=== PATIENT | female | born 1950 | race Caucasian/White ===

== ENCOUNTER 2019-04-03 20:55 | Inpatient (IN) | payer MEDICARE, MEDICAID ==
--- NOTE | 2019-04-03 22:07 | EDM.PDOC ---
ED HPI GENERAL MEDICAL PROBLEM - General Chief Complaint: Abdominal Pain Stated Complaint: ABD PAIN Time Seen by Provider: 04/03/19 21:40 Source of Information: Reports: Patient, Family History Limitations: Reports: No Limitations - History of Present Illness INITIAL COMMENTS - FREE TEXT/NARRATIVE: 68-year-old female with known gallstones developed right upper quadrant pain radiating to her back with nausea about 2 hours prior to presentation. The pain was improving by the time she arrived to the emergency room. No fevers or chills , no diarrhea. Denies shortness of breath or chest pain. The pain is still present, limited to the upper abdomen. Onset: Sudden Duration: Hour(s): (2 hours) Associated Symptoms: Reports: Malaise, Nausea/Vomiting. Denies: Confusion, Fever/Chills, Loss of Appetite, Shortness of Breath abd pain Pain Score (Numeric/FACES): 10 - Related Data Allergies Allergy/AdvReac Type Severity Reaction Status Date / Time Penicillins Allergy Severe Difficulty Verified 04/03/19 21:20 Breathing quinine [Quinine] Allergy Intermediate Hives Verified 04/03/19 21:20 Iodinated Contrast- Oral and Allergy Burning Verified 04/03/19 21:20 IV Dye [Iodinated Contrast Media - IV Dye] Home Meds: Home Meds Lisinopril 10 mg PO BEDTIME 08/14/13 [History] Simvastatin 20 mg PO BEDTIME 08/14/13 [History] Ranitidine [Zantac] 150 mg PO BID 05/19/16 [History] Nitroglycerin [Nitrostat] 0.4 mg SL ASDIRECTED PRN 05/26/16 [History] Acetaminophen [Tylenol] 325 mg PO .Q3-4H PRN 08/04/16 [History] Metoprolol Succinate 50 mg PO DAILY 08/04/16 [History] Omeprazole 20 mg PO DAILY 08/04/16 [History] Past Medical History HEENT History: Reports: Impaired Vision Cardiovascular History: Reports: CAD, High Cholesterol, Hypertension, [place] Gastrointestinal History: Reports: Cholelithiasis, GERD Genitourinary History: Reports: Other (See Below) Other Genitourinary History: right kidney stent 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: Musculoskeletal History: Reports: Arthritis, Osteoarthritis Endocrine/Metabolic History: Reports: Obesity/BMI 30+ - Infectious Disease History Infectious Disease History: Reports: Chicken Pox, Measles, Mumps, Rubella - Past Surgical History GI Surgical History: Reports: Appendectomy, Colonoscopy, EGD Female Surgical History: Reports: Breast Biopsy Musculoskeletal Surgical History: Reports: None Social & Family History - Tobacco Use Smoking Status *Q: Never Smoker - Caffeine Use Caffeine Use: Reports: Coffee Caffeine Use Comment: instant decaf - Recreational Drug Use Recreational Drug Use: No ED ROS GENERAL - Review of Systems Review Of Systems: See Below Constitutional: Reports: Malaise. Denies: Fever, Chills HEENT: Reports: No Symptoms Respiratory: Denies: Shortness of Breath Cardiovascular: Denies: Chest Pain GI/Abdominal: Reports: Abdominal Pain, Nausea, Vomiting. Denies: Constipation, Diarrhea : Reports: No Symptoms Skin: Reports: No Symptoms Neurological: Denies: Headache ED EXAM, GI/ABD - Physical Exam Exam: See Below Exam Limited By: No Limitations General Appearance: Alert, No Apparent Distress (Mildly uncomfortable but no longer in any distress) Eyes: Bilateral: Normal Appearance (No jaundice) Head: Atraumatic Respiratory/Chest: No Respiratory Distress, Lungs Clear Cardiovascular: Regular Rate, Rhythm GI/Abdominal Exam: Normal Bowel Sounds, Soft, Tender (She is tender with mild guarding to palpation in the right upper quadrant, no rebound tenderness) Neurological: Alert, Oriented Psychiatric: Normal Affect, Normal Mood Skin Exam: Warm, Dry Course - Vital Signs Last Recorded V/S: Last Vital Signs Temp 97.5 F 04/03/19 21:26 Pulse 69 04/04/19 00:06 Resp 14 04/04/19 00:06 BP 126/60 04/04/19 01:06 Pulse Ox 95 04/04/19 00:06 - Orders/Labs/Meds Orders: Medication Orders Sodium Chloride (Normal Saline) 1,000 mls @ 150 mls/hr IV ASDIRECTED [facility] Last Admin: 04/04/19 01:06 Dose: 150 mls/hr Metronidazole 500 mg/ Premix 100 mls @ 100 mls/hr IV Q8H [facility] Last Admin: 04/04/19 01:07 Dose: 100 mls/hr Ciprofloxacin/Dextrose 400 mg/ (Premix) 200 mls @ 200 mls/hr IV Q12H [facility] Lisinopril (Prinivil) 10 mg PO DAILY [facility] Last Admin: 04/04/19 01:06 Dose: 10 mg Morphine Sulfate (Morphine) 2 mg IVPUSH Q4H PRN PRN Reason: Pain (severe 7-10) Ondansetron HCl (Zofran) 4 mg IV Q4H PRN PRN Reason: Nausea/Vomiting Senna/Docusate Sodium (Senna Plus) 1 tab PO BID PRN PRN Reason: Constipation Simvastatin (Zocor) 20 mg PO BEDTIME BELL Last Admin: 04/04/19 01:14 Dose: 20 mg Labs: Laboratory Tests 04/03/19 04/03/19 Range/Units 22:02 22:02 WBC 17.6 H (4.5-11.0) K/uL RBC 4.20 (3.30-5.50) M/uL Hgb 12.5 (12.0-15.0) g/dL Hct 39.7 (36.0-48.0) % MCV 95 (80-98) fL MCH 30 (27-31) pg MCHC 32 (32-36) % Plt Count 364 (150-400) K/uL Neut % (Auto) 84 H (36-66) % Lymph % (Auto) 9 L (24-44) % Cache % (Auto) 6 (2-6) % Eos % (Auto) 1 L (2-4) % Baso % (Auto) 0 (0-1) % Sodium 142 (140-148) mmol/L Potassium 3.8 (3.6-5.2) mmol/L Chloride 106 (100-108) mmol/L Carbon Dioxide 26 (21-32) mmol/L Anion Gap 10.2 (5.0-14.0) mmol/L BUN 27 H (7-18) mg/dL Creatinine 0.8 (0.6-1.0) mg/dL Est Cr Clr Drug Dosing 54.13 mL/min Estimated GFR (MDRD) > 60 (>60) Glucose 164 H (74-106) mg/dL Calcium 9.2 (8.5-10.1) mg/dL Total Bilirubin 0.6 (0.2-1.0) mg/dL AST 113 H D (15-37) U/L ALT 59 D (12-78) U/L Alkaline Phosphatase 180 H (46-116) U/L Total Protein 7.1 (6.4-8.2) g/dL Albumin 3.3 L (3.4-5.0) g/dL Globulin 3.8 H (2.3-3.5) g/dL Albumin/Globulin Ratio 0.9 L (1.2-2.2) Amylase 38 (25-115) U/L Lipase 117 (73-393) U/L Meds: Medications Generic Name Dose Route Start Last Admin Trade Name Nakul PRN Reason Stop Dose Admin Sodium Chloride 1,000 mls @ 150 mls/hr 04/04/19 00:15 04/04/19 01:06 Normal Saline IV 150 mls/hr ASDIRECTED BELL Administration Metronidazole 500 mg/ Premix 100 mls @ 100 mls/hr 04/04/19 00:00 04/04/19 01: 07 IV 100 mls/hr Q8H BELL Administration Ciprofloxacin/Dextrose 400 mg/ 200 mls @ 200 mls/hr 04/04/19 00:00 Premix IV Q12H BELL Lisinopril 10 mg 04/04/19 00:15 04/04/19 01:06 Prinivil PO 10 mg DAILY BELL Administration Morphine Sulfate 2 mg 04/04/19 00:00 Morphine IVPUSH Q4H PRN Pain (severe 7-10) Ondansetron HCl 4 mg 04/04/19 00:00 Zofran IV Q4H PRN Nausea/Vomiting Senna/Docusate Sodium 1 tab 04/04/19 00:00 Senna Plus PO BID PRN Constipation Simvastatin 20 mg 04/04/19 00:10 04/04/19 01:14 Zocor PO 20 mg BEDTIME BELL Administration Discontinued Medications Generic Name Dose Route Start Last Admin Trade Name Nakul PRN Reason Stop Dose Admin Ciprofloxacin/Dextrose 400 mg/ 200 mls @ 200 mls/hr 04/04/19 00:15 Premix IV Q12H BELL Ciprofloxacin/Dextrose 400 mg/ 200 mls @ 200 mls/hr 04/04/19 00:30 Premix IV Q12H BELL - Re-Assessments/Exams Free Text/Narrative Re-Assessment/Exam: 04/03/19 22:06 CBC, CMP amylase and lipase were obtained. 04/03/19 22:50 White count was 17,600, alkaline phosphatase and AST were also elevated. Despite the patient's improving symptoms, with the abnormal labs a gallbladder ultrasound was obtained for tonight which is pending. Amylase and lipase were normal. 04/03/19 23:57 Gallbladder ultrasound confirmed a large stone in the neck of the gallbladder with borderline wall, no pericholecystic fluid and she is having less pain. [facility], symptom control, and surgical consult tomorrow. Departure - Departure Time of Disposition: 00:48 Disposition: Admitted As Inpatient 64 Clinical Impression: Cholecystitis Abdominal pain Qualifiers: Abdominal location: right upper quadrant Qualified Code(s): R10.11 - Right upper quadrant pain - Discharge Information
[2019-04-04] MEDS ORDERED: Morphine 2 MG/ML Syringe IVPUSH PRN
[2019-04-04] MEDS ORDERED: Ondansetron 4 MG/2 ML SDV IV PRN
--- NOTE | 2019-04-04 | PCM.HP ---
H&P History of Present Illness - General Date of Service: 04/04/19 Source of Information: Patient - History of Present Illness Initial Comments - Free Text/Narative: 68-year-old female with past medical history of hyperlipidemia, hypertension, GERD, previous history of kidney stones came to the ED with a complaining of nausea, vomiting, right upper quadrant abdominal pain. Patient states that she has nausea and 4 episodes of vomiting today. Denies any blood in the vomiting. Patient reports that she has recurrent abdominal pains in the right upper quadrant which resolves on its own. Patient reports that pain is 5 and 6/10 intensity, throbbing type pain, intermittent. Patient was previously diagnosed with kidney stones at that time imaging studies showed multiple gallstones and gallbladder. In the ED patient had ultrasound which showed multiple gallstones obstructing the gallbladder neck. Patient CODE STATUS is full code. Other review of systems are not significant. abd pain Pain Score (Numeric/FACES): 10 - Related Data Allergies/Adverse Reactions: Allergies Allergy/AdvReac Type Severity Reaction Status Date / Time Penicillins Allergy Severe Difficulty Verified 04/03/19 21:20 Breathing quinine [Quinine] Allergy Intermediate Hives Verified 04/03/19 21:20 Iodinated Contrast- Oral and Allergy Burning Verified 04/03/19 21:20 IV Dye [Iodinated Contrast Media - IV Dye] Home Medications: Home Meds Lisinopril 10 mg PO BEDTIME 08/14/13 [History] Simvastatin 20 mg PO BEDTIME 08/14/13 [History] Ranitidine [Zantac] 150 mg PO BID 05/19/16 [History] Nitroglycerin [Nitrostat] 0.4 mg SL ASDIRECTED PRN 05/26/16 [History] Acetaminophen [Tylenol] 325 mg PO .Q3-4H PRN 08/04/16 [History] Metoprolol Succinate 50 mg PO DAILY 08/04/16 [History] Omeprazole 20 mg PO DAILY 08/04/16 [History] Past Medical History HEENT History: Reports: Impaired Vision Cardiovascular History: Reports: CAD, High Cholesterol, Hypertension, [place] Gastrointestinal History: Reports: Cholelithiasis, GERD Genitourinary History: Reports: Other (See Below) Other Genitourinary History: right kidney stent 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: Musculoskeletal History: Reports: Arthritis, Osteoarthritis Endocrine/Metabolic History: Reports: Obesity/BMI 30+ - Infectious Disease History Infectious Disease History: Reports: Chicken Pox, Measles, Mumps, Rubella - Past Surgical History GI Surgical History: Reports: Appendectomy, Colonoscopy, EGD Female Surgical History: Reports: Breast Biopsy Musculoskeletal Surgical History: Reports: None Social & Family History - Family History Family Medical History: Noncontributory - Tobacco Use Smoking Status *Q: Never Smoker - Caffeine Use Caffeine Use: Reports: Coffee Caffeine Use Comment: instant decaf - Recreational Drug Use Recreational Drug Use: No H&P Review of Systems - Review of Systems: Review Of Systems: See Below General: Denies: Fever, Chills, Malaise, Weakness Pulmonary: Denies: Shortness of Breath, Wheezing, Pleuritic Chest Pain, Cough Cardiovascular: Denies: Chest Pain, Palpitations, Dyspnea on Exertion, Orthopnea , PND Gastrointestinal: Reports: Abdominal Pain, Nausea, Vomiting. Denies: Black Stool, Bloody Stool, Constipation Genitourinary: Denies: Dysuria, Frequency Musculoskeletal: Denies: Neck Pain, Shoulder Pain, Arm Pain Skin: Denies: Cyanosis, Jaundice Psychiatric: Denies: Confusion, Depression, Mood Lability Neurological: Denies: Confusion, Dizziness Hematologic/Lymphatic: Denies: Anemia, Easy Bleeding Exam - Exam Exam: See Below - Vital Signs Vital Signs: Last Vital Signs Temp 36.4 C 04/03/19 21:26 Pulse 72 04/03/19 21:26 Resp 18 04/03/19 21:26 BP 161/57 H 04/03/19 21:26 Pulse Ox 94 L 04/03/19 21:26 Weight: 84.5 kg - Exam General: Alert, Oriented Neck: Supple, Trachea Midline Lungs: Clear to Auscultation, Normal Respiratory Effort Cardiovascular: Regular Rate, Regular Rhythm, Normal S1, Normal S2 GI/Abdominal Exam: Normal Bowel Sounds, Soft, No Organomegaly, No Distention, No Mass, Pelvis Stable, Tender. No: Non-Tender Extremities: Normal Inspection, Normal Range of Motion, Non-Tender, No Pedal Edema Skin: Warm, Dry, Intact Neuro Extensive - Mental Status: Alert, Oriented x3 - Patient Data Lab Results Last 24 hrs: Laboratory Results - last 24 hr 04/03/19 04/03/19 Range/Units 22:02 22:02 WBC 17.6 H (4.5-11.0) K/uL RBC 4.20 (3.30-5.50) M/uL Hgb 12.5 (12.0-15.0) g/dL Hct 39.7 (36.0-48.0) % MCV 95 (80-98) fL MCH 30 (27-31) pg MCHC 32 (32-36) % Plt Count 364 (150-400) K/uL Neut % (Auto) 84 H (36-66) % Lymph % (Auto) 9 L (24-44) % [place] % (Auto) 6 (2-6) % Eos % (Auto) 1 L (2-4) % Baso % (Auto) 0 (0-1) % Sodium 142 (140-148) mmol/L Potassium 3.8 (3.6-5.2) mmol/L Chloride 106 (100-108) mmol/L Carbon Dioxide 26 (21-32) mmol/L Anion Gap 10.2 (5.0-14.0) mmol/L BUN 27 H (7-18) mg/dL Creatinine 0.8 (0.6-1.0) mg/dL Est Cr Clr Drug Dosing 54.13 mL/min Estimated GFR (MDRD) > 60 (>60) Glucose 164 H (74-106) mg/dL Calcium 9.2 (8.5-10.1) mg/dL Total Bilirubin 0.6 (0.2-1.0) mg/dL AST 113 H D (15-37) U/L ALT 59 D (12-78) U/L Alkaline Phosphatase 180 H (46-116) U/L Total Protein 7.1 (6.4-8.2) g/dL Albumin 3.3 L (3.4-5.0) g/dL Globulin 3.8 H (2.3-3.5) g/dL Albumin/Globulin Ratio 0.9 L (1.2-2.2) Amylase 38 (25-115) U/L Lipase 117 (73-393) U/L Result Diagrams: 04/05/19 05:07 04/04/19 05:49 - Problem List (1) Abdominal pain SNOMED Code(s): 10940522 ICD Code: R10.9 - UNSPECIFIED ABDOMINAL PAIN Status: Acute Current Visit : Yes Qualifiers: Abdominal location: right upper quadrant Qualified Code(s): R10.11 - Right upper quadrant pain (2) Cholecystitis SNOMED Code(s): 13238683 ICD Code: K81.9 - CHOLECYSTITIS, UNSPECIFIED Status: Acute Current Visit : Yes (3) GERD (gastroesophageal reflux disease) SNOMED Code(s): 064899664 ICD Code: K21.9 - GASTRO-ESOPHAGEAL REFLUX DISEASE WITHOUT ESOPHAGITIS Status: Chronic Current Visit: No (4) HTN (hypertension) SNOMED Code(s): 87907754 ICD Code: I10 - ESSENTIAL (PRIMARY) HYPERTENSION Status: Chronic Current Visit: No Problem List Initiated/Reviewed/Updated: Yes Orders Last 24hrs: Active Orders 24 hr Category Date Time Status Abdomen Ltd [US] Stat Exams 04/03/19 22:27 Taken Assessment/Plan Comment:: 68-year-old female with past medical history of hyperlipidemia, hypertension, GERD, biliary colic came to the ED with a complaining of abdominal pain admitted into the hospital with acute cholecystitis Patient ultrasound showed concerns of acute cholecystitis We will place her on ciprofloxacin, metronidazole antibiotic as patient is allergic to penicillin Maintenance IV fluids 150 mL/h Morphine for pain control as needed CBC CMP tomorrow N.p.o. for now Consulted surgery for possible cholecystectomy CODE STATUS full code IV fluids normal saline 150 mL/h Diet n.p.o. for now Adamson catheter not indicated DVT prophylaxis Pass boots
[2019-04-04] MEDS ORDERED: Simvastatin 20 MG Tab PO SCH (00:10)
[2019-04-04] MEDS ORDERED: Ciprofloxacin in D5W 400 MG in Premix Bag 1 BAG IV SCH ×8 (00:15→14:00)
[2019-04-04] MEDS ORDERED: Sodium Chloride 0.9% 1,000 ML IV SCH (00:15)
--- NOTE | 2019-04-04 00:20 | CRLUS ---
INDICATION: Right upper quadrant pain. Nausea and vomiting TECHNIQUE: Ultrasound abdomen limited. Sonographic images of the right upper quadrant were obtained using braswell-scale and color Doppler images. COMPARISON: None available FINDINGS: Liver: Slightly increased hepatic echogenicity. No discrete hepatic lesion seen. Gallbladder: A prominent shadowing nonmobile gallstone near the gallbladder neck. Gallbladder wall thickening, measuring up to 6 mm, however the gallbladder is not significantly distended. A reported negative sonographic Helm`s sign. Common bile duct: 4 mm. Pancreas: Unremarkable. Right kidney: 10.3 x 4.5 x 4.3 cm. Unremarkable echotexture and cortex. No masses, stones, or hydronephrosis. Vasculature: The visualized aorta is within normal limits in caliber. IMPRESSION: Cholelithiasis with gallbladder wall thickening, however no significant gallbladder distention. In the correct clinical setting, the findings could represent acute or chronic cholecystitis, although the gallbladder wall thickening may also be related to hepatic disease. Correlate clinically. If indicated, correlate with HIDA scan. Dictated by Hi Brown MD @ 04/04/2019 12:18:25 AM Dictated by: Hi Brown MD @ 04/04/2019 00:18:53 (Electronically Signed)
[2019-04-04] MEDS: Lisinopril 10 MG Tab PO SCH ×2 (01:06→08:06)
[2019-04-04] MEDS ORDERED: Glycopyrrolate 0.2 MG/ML 5 ML MDV ONE (08:27)
[2019-04-04] MEDS ORDERED: Rocuronium 50 MG/5 ML Vial ONE (08:27)
[2019-04-04] MEDS ORDERED: Neostigmine Methylsulfate 1 MG/ML 5 ML Syringe ONE (08:27)
[2019-04-04] MEDS ORDERED: Succinylcholine 200 MG/10 ML MDV ONE (08:27)
[2019-04-04] MEDS ORDERED: Ondansetron 4 MG/2 ML SDV ONE (08:27)
[2019-04-04] MEDS ORDERED: Dexamethasone 4 MG/ML SDV ONE (08:27)
[2019-04-04] MEDS ORDERED: Propofol 200 MG/20 ML SDV ONE (08:27)
[2019-04-04] MEDS ORDERED: fentaNYL 250 MCG/5 ML SDV ONE (08:30)
[2019-04-04] MEDS ORDERED: metroNIDAZOLE/Normal Saline 500 MG in Premix Bag 1 BAG IV SCH ×3 (09:00)
[2019-04-04] MEDS ORDERED: Metoprolol Succinate 50 MG Tab.ER PO ONE (09:00)
[2019-04-04] MEDS ORDERED: Meropenem 500 MG in Sodium Chloride 0.9% 50 ML IV ONE (10:15)
[2019-04-04] MEDS ORDERED: fentaNYL 100 MCG/2 ML SDV ONE (12:26)
[2019-04-04] MEDS ORDERED: Labetalol 20 MG/4 ML Syringe ONE (12:34)
[2019-04-04] MEDS ORDERED: Sugammadex Sodium 200 MG/2 ML VIAL ONE (13:02)
[2019-04-04] MEDS ORDERED: Midazolam 1 MG/ML 2 ML SDV ONE (13:10)
[2019-04-04] MEDS ORDERED: hydrOXYzine HCl 100 MG/2 ML SDV IM ONE (13:50)
[2019-04-04] MEDS ORDERED: HYDROmorphone 1 MG/ML Syringe IV PRN (14:36)
[2019-04-04] MEDS ORDERED: HYDROmorphone 0.5 MG/0.5 ML Syringe IVPUSH PRN (14:37)
[2019-04-04] MEDS ORDERED: Nitroglycerin 0.4 MG Tab.SL SL PRN (14:38)
[2019-04-04] MEDS ORDERED: Dextrose 5%-Lactated Ringers 1,000 ML IV SCH (14:45)
[2019-04-04] MEDS: Acetaminophen/HYDROcodone 325-5 MG Tab PO PRN (14:49)
[2019-04-04] MEDS: Acetaminophen 325 MG Tab PO SCH ×2 (15:54→22:12)
[2019-04-04] MEDS: Meropenem 500 MG in Sodium Chloride 0.9% 50 ML IV SCH ×2 (15:54→22:13)
[2019-04-04] MEDS ORDERED: Pantoprazole 40 MG Vial IV SCH (16:30)
[2019-04-05] MEDS: Acetaminophen 325 MG Tab PO SCH ×2 (04:13→09:34)
[2019-04-05] MEDS: Meropenem 500 MG in Sodium Chloride 0.9% 50 ML IV SCH (04:15)
[2019-04-05] MEDS: Acetaminophen/HYDROcodone 325-5 MG Tab PO PRN (04:20)
[2019-04-05 08:34] VITALS: BP 111/47
[2019-04-05] MEDS ORDERED: Metoprolol Succinate 50 MG Tab.ER PO SCH (09:00)
[2019-04-05] MEDS ORDERED: Magnesium Hydroxide 400 MG/5 ML Susp 30 ML Cup PO SCH (09:00)
--- NOTE | 2019-04-05 18:52 | DISCH ---
ADMISSION DIAGNOSES: 1. Abdominal pain. 2. Hypertension. 3. Gastroesophageal reflux disease. DISCHARGE DIAGNOSIS: Diagnostic laparoscopy with cholecystectomy and excision of enlarged portal hepatic lymph node for subacute/chronic cholecystitis and cholelithiasis and enlarged portal hepatic lymph node. Date of surgery 04/04/2019. Surgeon, Dr. Diogenes Landrum. HISTORY: Shruthi De Los Santos is a 68-year-old female who went to the emergency room with severe abdominal pain. After preoperative evaluation and discussion of possible risks and possible complications, she wished to proceed with surgical procedure. HOSPITAL COURSE: Shruthi had her surgery on 04/04/2019. She had no operative complications. She was able to be discharged to home on 04/05/2019. PHYSICAL EXAMINATION: GENERAL: Shruthi De Los Santos is a 68-year-old female. VITAL SIGNS: Height is 5 feet 2.9 inches. Weight is 186 pounds. TPR is 98, 180, 16. Blood pressure 111/47. HEENT: Negative. NECK: Supple. HEART: Regular rate and rhythm. LUNGS: Clear. ABDOMEN: Dressings dry and intact. Abdominal binder is on. EXTREMITIES: Without peripheral edema. VIDAL drain put out 40 mL of a light pink drainage. DISPOSITION: Discharge to home. CONDITION: Stable and improving. FOLLOWUP: Followup appointment with Sindy Nieto PA-C, on 04/13/2019 at 10 a.m. HOME MEDICATION: [place] 5/325 mg one tablet every 6 hours p.r.n. pain, #28. She is to resume her home medication. DIET: Usual diet as tolerated, drink 8 to 10 glasses of water a day. ACTIVITY: As tolerated. No lifting greater than 10 pounds for 2 weeks[address] Driving, do not drive for 1 week or while on pain medication. Shower/bathing, may shower. Keep operative site clean and dry. Wear abdominal binder for 2 weeks and then as tolerated. Notify provider if any fever, increased pain, nausea, or vomiting. Use incentive spirometer 10 times every hour while awake.
[2019-04-05] MEDS ORDERED: Lisinopril 10 MG Tab PO SCH (21:00)
--- NOTE | 2019-04-10 07:46 | OR ---
CORRECTED REPORT DATE OF PROCEDURE: 04/04/2019 SURGEON: Diogenes Landrum MD PREOPERATIVE DIAGNOSIS: Subacute and chronic cholecystitis and cholelithiasis. POSTOPERATIVE DIAGNOSES: 1. Subacute and chronic cholecystitis and cholelithiasis. 2. Enlarged denny hepatis lymph node. OPERATIVE PROCEDURE: 1. Diagnostic laparoscopy with: a. Cholecystectomy (74426). b. Excision of enlarged denny hepatis lymph node ([id number]). ANESTHESIA: General. ASSISTANTS: 1. Sindy Nieto PA-C. 2. KELLY Valentino1. INDICATION FOR PROCEDURE: The patient was admitted overnight with a recurrent episode of biliary colic, and workup showed a thickened gallbladder containing stones. At this point, she wishes to proceed with surgical treatment. Antibiotics had been administered overnight, and she is to undergo a laparoscopic or, if necessary, open cholecystectomy. Potential risks of the procedure including bleeding, infection, injury to underlying viscera, and problems with stones migrating into the common bile duct requiring additional procedures for correction were all reviewed, and the patient wishes to proceed. DETAILS OF PROCEDURE: The patient was taken to the operating room and placed in a supine position. After general endotracheal anesthesia was induced, the abdomen was prepped and draped. In the epigastrium, a transverse incision was made and the peritoneal cavity entered under direct vision with an Optiview trocar and inflated to 15 mmHg pressure of CO2. Laparoscope was then reinserted. No underlying trocar insertion site injuries were seen. Following this, a 12 mm subumbilical trocar was placed, along with a single 5 mm right abdominal trocar. Bilateral subcostal transversus abdominis plane blocks were then placed and the upper abdomen examined. The patient was noted to have a thick walled, acutely or subacutely inflamed gallbladder with a visible stone lodged in the gallbladder neck. In the denny hepatis, there was one particularly enlarged lymph node, which stood out quite prominently, this measuring about 1 cm, and this was excised for pathologic staging in the event that there might be carcinoma within the gallbladder. The gallbladder was then retracted anteriorly and laterally. Dissection began with Harmonic scalpel on the gallbladder neck and continued around the gallbladder neck and cystic duct junction. The cystic artery adjacent to this was then isolated as well. The cystic duct was fairly thick and friable. This was, therefore, divided with a [place] purple load. The artery was then clipped 3 times proximally and divided distally with Harmonic scalpel. The gallbladder was then dissected off the gallbladder bed. The gallbladder was then placed into a specimen bag, which was retrieved through the epigastric trocar site, which at that point had to be enlarged somewhat. The gallbladder contained multiple large stones. Also, surface of the gallbladder was opened, and there did not appear to be any obvious points of malignancy, but more of a diffuse inflamed edematous mucosa. In the denny hepatis, just posterior and lateral to the common hepatic duct, an enlarged lymph node measuring 1.0-1.5cm was present. This was excised and sent to pathology. The area of dissection was then inspected. A Baljit-Garza drain was taken out through the right lateral trocar site, and with no further problems noted, the remaining trocars were removed. Fascia at the 12 mm site was closed with 0 Vicryl stitch and the skin with 4-0 Vicryl skin stitch. A dressing was applied. The patient was taken to the recovery room in satisfactory condition. Physician application assistant, Sindy Nieto, played an essential role in assisting in this case, helping to position the patient, retract structures as needed, as well as suturing and cutting sutures when indicated. Her presence improved patient safety and decreased operative time. Diogenes Landrum MD /[id number]
== END 2019-04-05 11:00 | disposition home or self-care (01) | DRG 419 ==
LOC: JP.ED 20:55 → JP.ICU 04-04 → JP.MS 04-04 14:05
PROVIDERS: ADMIT Family Medicine; ATTEND Surgery
PROC: 0FT44ZZ Resection of Gallbladder, Percutaneous Endoscopic Approach (ICD-10-PCS; principal; 2019-04-04)
PROC: 07BC4ZX Excision of Pelvis Lymphatic, Percutaneous Endoscopic Approach, Diagnostic (ICD-10-PCS; 2019-04-04)
DX: K80.12 Calculus of gallbladder with acute and chronic cholecystitis without obstruction (principal); R59.0 Localized enlarged lymph nodes; I10 Essential (primary) hypertension; R10.11 Right upper quadrant pain; R11.2 Nausea with vomiting, unspecified; I25.10 Atherosclerotic heart disease of native coronary artery without angina pectoris; H54.7 Unspecified visual loss; E78.5 Hyperlipidemia, unspecified; I25.2 Old myocardial infarction; K21.9 Gastro-esophageal reflux disease without esophagitis; M19.90 Unspecified osteoarthritis, unspecified site; E66.9 Obesity, unspecified; Z68.33 Body mass index [BMI] 33.0-33.9, adult; Z87.442 Personal history of urinary calculi; Z91.041 Radiographic dye allergy status; Z88.0 Allergy status to penicillin; Z88.8 Allergy status to other drugs, medicaments and biological substances
CPT/HCPCS: 36415; 76705; 80053; 81001; 82150; 82247; 83690; 84075; 85025; 88304; 88305; 96374; 96375; 99285-25; A9270-GY; C9113; C9399; J0171; J0330; J0744; J1100; J1170; J2185; J2250; J2405; J2704; J2710; J2795; J3010; J3410; J3490; J7030; J7042; J7050

== ENCOUNTER 2021-01-30 07:18 | Day surgery (SDC) | payer MEDICARE, MEDICAID ==
[2021-01-30] MEDS: Sodium Chloride 0.9% 10 ML Syringe FLUSH PRN (07:40)
[2021-01-30 10:26] VITALS: BP 165/82; PULSE 82
--- NOTE | 2021-01-30 14:40 | OR ---
DATE OF PROCEDURE: 01/30/2021 SURGEON: Lin Nugent MD POSTOPERATIVE CARE: Postoperative care will be provided mainly at the [address] [place] [address] [facility] in conjunction with [facility]. PREOPERATIVE DIAGNOSIS: Cataract, left eye. POSTOPERATIVE DIAGNOSIS: Cataract, left eye. PROCEDURE: Phacoemulsification with intraocular lens placement, left eye. ANESTHESIA: Topical and intracameral. ESTIMATED BLOOD LOSS: Minimal. COMPLICATIONS: None. PATHOLOGY SPECIMENS: None. SURGICAL FINDINGS: None. INDICATION FOR PROCEDURE: The patient is a 70-year-old female with history of a visually significant cataract in the left eye, which interfered with activities of daily living. This consisted of a nuclear sclerosis cataract. Following careful discussion of the risks, benefits and alternatives to cataract extraction with intraocular lens placement including blindness and , the patient elected to proceed, and informed, written consent was obtained prior to the procedure. DESCRIPTION OF THE PROCEDURE: The patient was previously identified, and a grant placed above the left eye. All sources, including the patient, indicated that the left eye was the correct eye. The patient was subsequently taken to the operating room where standard monitors were applied. The patient was then prepped and draped in the usual sterile fashion for ophthalmic surgery. Attention was first directed at the 12 o'clock position where a paracentesis port was fashioned. Shugar solution followed by Viscoat was instilled into the eye. Attention was then directed to the 8:30 position where a triplanar incision was made in a near-clear manner using a keratome. A continuous capsulorrhexis was then made using a combination of the cystotome and Utrata forceps. Hydrodissection was achieved using a balanced salt solution, and the lens rotated nicely. Phacoemulsification was then done using a modified [id number]-[id number]-[id number] technique without complication. Phaco time was 12.45 CDE. The remaining cortex was removed using the irrigation/aspiration handpiece. Provisc was then instilled into the eye. A Technis lens, model DCB00, at 23.0 Diopters was then placed in the capsular bag using an [place] injector. The remaining viscoelastic was removed using the irrigation/aspiration forceps. All wounds were then checked and found to be watertight. The lid speculum and drapes were removed. Maxitrol ointment was placed in the patient's left eye, and the eye was shielded. The patient tolerated the procedure well. The patient was instructed to follow up tomorrow. All needle and sponge counts were correct at the end of the procedure. There were no surgical findings. Lin Nugent MD /[id number]
== END 2021-01-30 09:40 | disposition home or self-care (01) ==
LOC: JP.SDS 07:18
PROVIDERS: ATTEND Ophthalmology
DX: E11.36 Type 2 diabetes mellitus with diabetic cataract (principal); H25.12 Age-related nuclear cataract, left eye; I10 Essential (primary) hypertension; E78.00 Pure hypercholesterolemia, unspecified; Z88.8 Allergy status to other drugs, medicaments and biological substances
CPT/HCPCS: 66984; V2632

== ENCOUNTER 2021-02-13 07:20 | Day surgery (SDC) | payer MEDICARE, MEDICAID ==
[2021-02-13] MEDS ORDERED: Sodium Chloride 0.9% 10 ML Syringe FLUSH PRN (08:00)
[2021-02-13 09:07] VITALS: BP 179/98; PULSE 78
--- NOTE | 2021-02-13 14:52 | OR ---
DATE OF PROCEDURE: 02/13/2021 SURGEON: Lin Nugent MD POSTOPERATIVE CARE: Postoperative care will be provided mainly at the [address] [place] [address] [facility] in conjunction with [facility]. PREOPERATIVE DIAGNOSIS: Cataract, right eye. POSTOPERATIVE DIAGNOSIS: Cataract, right eye. PROCEDURE: Phacoemulsification with intraocular lens placement, right eye. ANESTHESIA: Topical and intracameral. ESTIMATED BLOOD LOSS: Minimal. COMPLICATIONS: None. PATHOLOGY SPECIMENS: None. SURGICAL FINDINGS: None. INDICATION FOR PROCEDURE: The patient is a 70-year-old female with history of a visually significant cataract in the right eye, which interfered with activities of daily living. This consisted of a nuclear sclerosis cataract. Following careful discussion of the risks, benefits and alternatives to cataract extraction with intraocular lens placement including blindness and , the patient elected to proceed, and informed, written consent was obtained prior to the procedure. DESCRIPTION OF THE PROCEDURE: The patient was previously identified, and a grant placed above the right eye. All sources, including the patient, indicated that the right eye was the correct eye. The patient was subsequently taken to the operating room where standard monitors were applied. The patient was then prepped and draped in the usual sterile fashion for ophthalmic surgery. Attention was first directed at the 12 o'clock position where a paracentesis port was fashioned. Shugar solution followed by Viscoat was instilled into the eye. Attention was then directed to the 8:30 position where a triplanar incision was made in a near-clear manner using a keratome. A continuous capsulorrhexis was then made using a combination of the cystotome and Utrata forceps. Hydrodissection was achieved using a balanced salt solution, and the lens rotated nicely. Phacoemulsification was then done using a modified srmesr-[id number]-kfcaoch technique without complication. Phaco time was 6.97 CDE. The remaining cortex was removed using the irrigation/aspiration handpiece. Provisc was then instilled into the eye. A Technis lens, model DCB00, at 21.5 diopters was then placed in the capsular bag using an [place] injector. The remaining viscoelastic was removed using the irrigation/aspiration forceps. All wounds were then checked and found to be watertight. The lid speculum and drapes were removed. Maxitrol ointment was placed in the patient's right eye, and the eye was shielded. The patient tolerated the procedure well. The patient was instructed to follow up tomorrow. All needle and sponge counts were correct at the end of the procedure. Lin Nugent MD /[id number]
== END 2021-02-13 09:09 | disposition home or self-care (01) ==
LOC: JP.SDS 07:20
PROVIDERS: ATTEND Ophthalmology
DX: H26.9 Unspecified cataract (principal); E66.9 Obesity, unspecified; Z68.33 Body mass index [BMI] 33.0-33.9, adult
CPT/HCPCS: 66984; V2632